=== PATIENT | male | born 1965 | race African-American/Black ===

== ENCOUNTER 2016-10-27 09:55 | Emergency (ER) | payer OTHER ==
--- NOTE | 2016-10-27 10:15 | ER Document Report ---
ED General - General Stated Complaint: SLURRED SPEECH Mode of Arrival: Ambulatory Information source: Law Enforcement Notes: 51 yr old male presents with left sided facial droop, unable to move his left forehead and slurred speech since yesterday. pt notes symptoms are worsening, has noted left ear pain , denies any neuro deficits otherwise - HPI Onset: Yesterday Onset/Duration: Persistent, Worse Quality of pain: Achy Severity: Mild Pain Level: 1 Associated symptoms: Earache Exacerbated by: Denies Relieved by: Denies Similar symptoms previously: No Recently seen / treated by doctor: No - Related Data Allergies/Adverse Reactions: No Known Allergies Allergy (Unverified 10/27/16 10:28) Past Medical History - Social History Smoking Status: Never Smoker Cigarette use (# per day): No Chew tobacco use (# tins/day): No Smoking Education Provided: No Family History: Reviewed & Not Pertinent Review of Systems - Review of Systems Notes: REVIEW OF SYSTEMS: CONSTITUTIONAL : Denies fever, chills, or sweats. Denies recent illness. EENT: Unable to close left eye CARDIOVASCULAR: Denies chest pain. Denies palpitations or racing or irregular heart beat. Denies ankle edema. RESPIRATORY: Denies cough, cold, or chest congestion. Denies shortness of breath, difficulty breathing, or wheezing. GASTROINTESTINAL: Denies abdominal pain or distention. Denies nausea, vomiting , or diarrhea. Denies blood in vomitus, stools, or per rectum. Denies black, tarry stools. Denies constipation. GENITOURINARY: Denies difficulty urinating, painful urination, burning, frequency, blood in urine, or discharge. MUSCULOSKELETAL: Denies back or neck pain or stiffness. Denies joint pain or swelling. SKIN: Denies rash, lesions or sores. HEMATOLOGIC : Denies easy bruising or bleeding. LYMPHATIC: Denies swollen, enlarged glands. NEUROLOGICAL: Left facial symptoms PSYCHIATRIC: Denies anxiety or stress. Denies depression, suicidal ideation, or homicidal ideation. ALL OTHER SYSTEMS REVIEWED AND NEGATIVE. Dictation was performed using [employer] voice recognition software PHYSICAL EXAMINATION: GENERAL: Well-appearing, well-nourished and in no acute distress. HEAD: Facial droop EYES: Pupils equal round and reactive to light, extraocular movements intact, sclera anicteric, conjunctiva are normal. Unable to close left eyelid ENT: Left ear noted to have ulcer NECK: Normal range of motion, supple without lymphadenopathy LUNGS: Breath sounds clear to auscultation bilaterally and equal. No wheezes rales or rhonchi. HEART: Regular rate and rhythm without murmurs ABDOMEN: Soft, nontender, nondistended abdomen. No guarding, no rebound. No masses appreciated. Musculoskeletal: Normal range of motion, no pitting or edema. No cyanosis. NEUROLOGICAL: Left facial droop with inability to move left forehead PSYCH: Normal mood, normal affect. SKIN: Warm, Dry, normal turgor, no rashes or lesions noted. 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 Patient was given neurology follow-up Patient denies a headache After performing a Medical Screening Examination, I estimate there is LOW risk for ACUTE GLAUCOMA, TEMPORAL ARTERITIS, MENINGITIS, INCRANIAL HEMORRHAGE, or ISCHEMIC STROKE thus I consider the discharge disposition reasonable. The patient and I have discussed the diagnosis and risks, and we agree with discharging home with close follow-up with the understanding that symptoms and presentations can change. We also discussed returning to the Emergency Department immediately if new or worsening symptoms occur. We have discussed the symptoms which are most concerning (e.g., changing or worsening symptoms, new numbness or weakness, vomiting, fever) that necessitate immediate return. - Vital Signs Vital signs: Temp Pulse Resp BP Pulse Ox 98.4 F 64 105/66 100 10/27/16 10:16 10/27/16 10:16 10/27/16 10:16 10/27/16 10:16 Discharge - Discharge Clinical Impression: Magallon palsy Condition: Stable Disposition: HOME, SELF-CARE Instructions: Magallon's Palsy ([facility]) Prescriptions: Acyclovir [Acyclovir 400 mg Tablet] 400 mg PO 5XD 10 Days Carboxymethylcellulose Sodium [Lubricant Eye Drops] 1 drop OD Q1 #1 pkg Prednisone 60 mg PO ASDIR PRN #30 tablet PRN Reason: Referrals: VINCENT ANGLIN MD [ACTIVE STAFF] - Follow up in 3-5 days
[2016-10-27 10:19] VITALS: BP 105/66
== END 2016-10-27 10:27 | disposition home or self-care (01) ==
LOC: ER 09:55
DX: G51.0 Bell's palsy (principal); R47.81 Slurred speech
CPT/HCPCS: 99284